=== PATIENT | male | born 1980 | race Caucasian/White ===

== ENCOUNTER 2021-01-10 18:21 | Observation (INO) | payer OTHER ==
[2021-01-10] MEDS ORDERED: ACETAMINOPHEN TAB 500 MG TAB PO STA (18:30)
[2021-01-10] MEDS: SODIUM CHLORIDE 0.9% 500 ML 500 ML IV SCH ×3 (18:56→21:44)
[2021-01-10] MEDS: SODIUM CHLORIDE 0.9% 1,000 ML IV SCH ×2 (18:56→23:37)
[2021-01-10 19:25] LABS: Potassium 3.7 mmol/L (3.5-5.1)
[2021-01-10 19:26] LABS: Calcium 9.2 mg/dL (8.4-10.2); Total Bilirubin 0.8 mg/dL (0.2-1.3); Total Protein 6.7 g/dL (6.3-8.2)
[2021-01-10 19:35] LABS: INR 1.1 (<1.2); Partial Thromboplastin Time 23.1 sec (22.0-30.0); Prothrombin Time 11.4 sec (9.0-12.0)
[2021-01-10 19:42] LABS: Basophils % (A) 1 %; Eosinophils % (A) 1 %; HCT 43.7 % (39.0-53.0); Lymphocytes # (A) 1.5 k/uL (1.0-4.8); Lymphocytes % (A) 27 %; MCHC 34.3 g/dL (31.0-37.0); MCV 90.6 fL (80.0-100.0); Mean Platelet Volume 7.9; Monocytes % (A) 18 %; Neutrophils # (A) 2.8 k/uL (1.3-7.7); Neutrophils % (A) 50 %; Platelet Count 300 k/uL (150-450); RBC 4.83 m/uL (4.30-5.90); RDW 12.6 % (11.5-15.5); WBC 5.6 k/uL (3.8-10.6)
--- NOTE | 2021-01-10 20:35 | CT ---
EXAMINATION TYPE: CT pelvis w con DATE OF EXAM: 01/10/2021 COMPARISON: None HISTORY: perirectal abscess CT DLP: 2956.8 mGycm Automated exposure control for dose reduction was used. CONTRAST: Performed with IV Contrast, patient injected with 100 mL of Isovue 300. Images obtained from the iliac crests to the floor the pelvis with IV contrast. There is no free fluid in the pelvis. Bladder distends smoothly. There is no sign of pelvic lymphaden opathy. Visualized bowel appears intact. There is no sign of free air. There is a 6 x 5 cm irregular fluid collection in the subcutaneous tissues on the right buttock adjac ent to the anus. The visualized rectosigmoid colon appears intact. The bony structures are intact. Sacrum and coccyx s egments have normal alignment. There is no perirectal edema. Hip joints are intact. IMPRESSION: Large subcutaneous fluid collection on the right side consistent with a perianal abscess.
--- NOTE | 2021-01-10 20:41 | ED ---
Skin/Abscess/FB HPI - General Chief complaint: Skin/Abscess/Foreign Body Stated complaint: Abscess Source: patient Mode of arrival: ambulatory Limitations: no limitations - History of Present Illness Initial comments: Enoch is a previously healthy 40-year-old male who presents to the emergency department stay via private vehicle for evaluation of an abscess on his buttocks. Patient reports that earlier this week he noticed pain and swelling in the area. He went to an urgent care earlier today and was told he had come to the emergency department for further evaluation. On diabetic. Patient has no history of abscess in this area. Patient has no known history of ulcerative colitis or Crohn's. Reports that his father was hospitalized with colitis but doesn't believe it was an inflammatory bowel disorder. - Related Data Home Medications Medication Instructions Recorded Confirmed amLODIPine BESYLATE/BENAZEPRIL 1 cap PO DAILY 01/10/21 01/10/21 [Lotrel 5-20 MG] Allergies Allergy/AdvReac Type Severity Reaction Status Date / Time No Known Allergies Allergy Verified 01/10/21 19:15 Review of Systems ROS Statement: Those systems with pertinent positive or pertinent negative responses have been documented in the HPI. ROS Other: All systems not noted in ROS Statement are negative. Past Medical History Past Medical History: Hypertension History of Any Multi-Drug Resistant Organisms: None Reported Past Surgical History: No Surgical Hx Reported Past Psychological History: No Psychological Hx Reported Smoking Status: Never smoker Past Alcohol Use History: Occasional Past Drug Use History: Marijuana General Exam - General Exam Comments Initial Comments: Physical Exam GENERAL: Patient is well-developed and well-nourished HENT: Normocephalic, Atraumatic EYES: PERRL, EOMI PULMONARY: Unlabored respirations No audible rales rhonchi or wheezing was noted. CARDIOVASCULAR: Tachycardic ABDOMEN: Soft and nontender with normal bowel sounds. SKIN: Erythema and edema of the right buttocks, swelling and pain prevent rectal exam : Swelling and pain prevent rectal exam NEUROLOGIC: Patient is alert and oriented x3. Moving all extremities spontaneously MUSCULOSKELETAL: Normal extremities with adequate strength and full range of motion. No lower extremity swelling or edema. No calf tenderness. PSYCHIATRIC: Normal psychiatric evaluation. Limitations: no limitations Course Vital Signs 01/10/21 01/10/21 18:21 20:00 Temperature 102.5 F H 100.8 F H Pulse Rate 126 H 78 Respiratory 18 18 Rate Blood Pressure 127/87 145/57 O2 Sat by Pulse 97 98 Oximetry Medical Decision Making - Medical Decision Making Patient was seen and evaluated Patient was febrile tachypneic and tachycardic Septic workup was initiated Physical exam consistent with cellulitis and likely abscess in the right buttock Computed tomography scan was obtained Labs were remarkably normal ED scan confirms a large 5 x 6 cm abscess Patient care was discussed with surgeon Dr. Rausch who accepts the admission Malina request the patient receive Zosyn, IV fluids, pain medication and antiemetics be made nothing by mouth at Plan was discussed with patient is in agreement to admission - Lab Data Result diagrams: 01/10/21 18:54 01/10/21 18:54 Lab Results 01/10/21 01/10/21 01/10/21 Range/Units 18:54 18:54 18:54 WBC 5.6 (3.8-10.6) k/uL RBC 4.83 (4.30-5.90) m/uL Hgb 15.0 (13.0-17.5) gm/dL Hct 43.7 (39.0-53.0) % MCV 90.6 (80.0-100.0) fL MCH 31.0 (25.0-35.0) pg MCHC 34.3 (31.0-37.0) g/dL RDW 12.6 (11.5-15.5) % Plt Count 300 (150-450) k/uL MPV 7.9 Neutrophils % 50 % Lymphocytes % 27 % Monocytes % 18 % Eosinophils % 1 % Basophils % 1 % Neutrophils # 2.8 (1.3-7.7) k/uL Lymphocytes # 1.5 (1.0-4.8) k/uL Monocytes # 1.0 (0-1.0) k/uL Eosinophils # 0.0 (0-0.7) k/uL Basophils # 0.0 (0-0.2) k/uL Manual Slide Review Performed PT 11.4 (9.0-12.0) sec INR 1.1 (<1.2) APTT 23.1 (22.0-30.0) sec Sodium 135 L (137-145) mmol/L Potassium 3.7 (3.5-5.1) mmol/L Chloride 101 (98-107) mmol/L Carbon Dioxide 21 L (22-30) mmol/L Anion Gap 13 mmol/L BUN 15 (9-20) mg/dL Creatinine 1.25 (0.66-1.25) mg/dL Est GFR (CKD-EPI)AfAm 82 (>60 ml/min/1.73 sqM) Est GFR (CKD-EPI)NonAf 71 (>60 ml/min/1.73 sqM) Glucose 140 H (74-99) mg/dL Plasma Lactic Acid Amanuel (0.7-2.0) mmol/L Calcium 9.2 (8.4-10.2) mg/dL Total Bilirubin 0.8 (0.2-1.3) mg/dL AST 24 (17-59) U/L ALT 24 (4-49) U/L Alkaline Phosphatase 69 (38-126) U/L Total Protein 6.7 (6.3-8.2) g/dL Albumin 4.0 (3.5-5.0) g/dL 01/10/21 Range/Units 18:54 WBC (3.8-10.6) k/uL RBC (4.30-5.90) m/uL Hgb (13.0-17.5) gm/dL Hct (39.0-53.0) % MCV (80.0-100.0) fL MCH (25.0-35.0) pg MCHC (31.0-37.0) g/dL RDW (11.5-15.5) % Plt Count (150-450) k/uL MPV Neutrophils % % Lymphocytes % % Monocytes % % Eosinophils % % Basophils % % Neutrophils # (1.3-7.7) k/uL Lymphocytes # (1.0-4.8) k/uL Monocytes # (0-1.0) k/uL Eosinophils # (0-0.7) k/uL Basophils # (0-0.2) k/uL Manual Slide Review PT (9.0-12.0) sec INR (<1.2) APTT (22.0-30.0) sec Sodium (137-145) mmol/L Potassium (3.5-5.1) mmol/L Chloride (98-107) mmol/L Carbon Dioxide (22-30) mmol/L Anion Gap mmol/L BUN (9-20) mg/dL Creatinine (0.66-1.25) mg/dL Est GFR (CKD-EPI)AfAm (>60 ml/min/1.73 sqM) Est GFR (CKD-EPI)NonAf (>60 ml/min/1.73 sqM) Glucose (74-99) mg/dL Plasma Lactic Acid Amanuel 1.3 (0.7-2.0) mmol/L Calcium (8.4-10.2) mg/dL Total Bilirubin (0.2-1.3) mg/dL AST (17-59) U/L ALT (4-49) U/L Alkaline Phosphatase (38-126) U/L Total Protein (6.3-8.2) g/dL Albumin (3.5-5.0) g/dL Disposition Clinical Impression: Perirectal abscess Disposition: ADMITTED IP TO THIS HOSP Condition: Stable Is patient prescribed a controlled substance at d/c from ED?: No Referrals: None,Stated [Primary Care Provider] - 1-2 days
[2021-01-10] MEDS ORDERED: ONDANSETRON 4 MG/2 ML VIAL IVP PRN (21:16)
[2021-01-10] MEDS ORDERED: MORPHINE SULFATE 4 MG/ML SYRINGE IV PRN (21:16)
[2021-01-10] MEDS ORDERED: NALOXONE 0.4 MG/ML 1 ML VIAL IV PRN (21:16)
[2021-01-10] MEDS ORDERED: IBUPROFEN 400 MG TAB PO PRN (21:16)
[2021-01-10 22:35] LABS: Appearance,Urine Clear (Clear); Bilirubin,Urine Negative (Negative); Blood,Urine Negative (Negative); Color,Urine Yellow; Glucose,Urine (UA) Negative (Negative); Ketones,Urine 1+ (Negative); Leukocyte Esterase,Urine Negative (Negative); Nitrite,Urine Negative (Negative); PH, Urine 5.5 (5.0-8.0); Protein,Urine Trace (Negative); Urobilinogen,Urine <2.0 mg/dL (<2.0)
[2021-01-10] MEDS: PIPERACILLIN-TAZOBACTAM 3.375 GM in SODIUM CHLORIDE 0.9% 100 ML IVPB SCH (23:36)
[2021-01-11] MEDS: ACETAMINOPHEN TAB 325 MG TAB PO PRN (02:16)
[2021-01-11] MEDS: PIPERACILLIN-TAZOBACTAM 3.375 GM in SODIUM CHLORIDE 0.9% 100 ML IVPB SCH ×3 (09:35→23:42)
[2021-01-11] MEDS: SODIUM CHLORIDE 0.9% 1,000 ML IV SCH ×3 (09:36→23:43)
[2021-01-11] MEDS ORDERED: HYDROmorphone 1 MG/ML 1 ML SYRINGE IVP PRN (13:08)
--- NOTE | 2021-01-11 14:42 | P.GSHP ---
History of Present Illness H&P Date: 01/11/21 Chief Complaint: Perirectal abscess This is a 40-year-old male who was admitted through the emergency room less than complaints of rectal pain. Patient has a right perirectal abscess. Past Medical History Past Medical History: Hypertension History of Any Multi-Drug Resistant Organisms: None Reported Past Surgical History: No Surgical Hx Reported Past Psychological History: No Psychological Hx Reported Smoking Status: Never smoker Past Alcohol Use History: Occasional Past Drug Use History: Marijuana Medications and Allergies Home Medications Medication Instructions Recorded Confirmed Type amLODIPine BESYLATE/BENAZEPRIL 1 cap PO DAILY 01/10/21 01/10/21 History [Lotrel 5-20 MG] Allergies Allergy/AdvReac Type Severity Reaction Status Date / Time No Known Allergies Allergy Verified 01/10/21 19:15 Surgical - Exam Vital Signs Temp Pulse Resp BP Pulse Ox 102.5 F H 126 H 18 127/87 97 01/10/21 18:21 01/10/21 18:21 01/10/21 18:21 01/10/21 18:21 01/10/21 18:21 - General well developed, well nourished, no distress - Eyes PERRL - ENT normal pinna - Neck no masses - Respiratory normal expansion - Cardiovascular Rhythm: regular - Abdomen Abdomen: soft, non tender - Rectum Right perirectal induration Results - Labs 01/10/21 18:54 01/10/21 18:54 Abnormal Lab Results - Last 24 Hours (Table) 01/10/21 01/10/21 Range/Units 18:30 18:54 Sodium 135 L (137-145) mmol/L Carbon Dioxide 21 L (22-30) mmol/L Glucose 140 H (74-99) mg/dL Ur Specific [place] 1.050 H (1.001-1.035) Urine Protein Trace H (Negative) Urine Ketones 1+ H (Negative) Diabetes panel 01/10/21 Range/Units 18:54 Sodium 135 L (137-145) mmol/L Potassium 3.7 (3.5-5.1) mmol/L Chloride 101 (98-107) mmol/L Carbon Dioxide 21 L (22-30) mmol/L BUN 15 (9-20) mg/dL Creatinine 1.25 (0.66-1.25) mg/dL Glucose 140 H (74-99) mg/dL Calcium 9.2 (8.4-10.2) mg/dL AST 24 (17-59) U/L ALT 24 (4-49) U/L Alkaline Phosphatase 69 (38-126) U/L Total Protein 6.7 (6.3-8.2) g/dL Albumin 4.0 (3.5-5.0) g/dL Calcium panel 01/10/21 Range/Units 18:54 Calcium 9.2 (8.4-10.2) mg/dL Albumin 4.0 (3.5-5.0) g/dL Pituitary panel 01/10/21 Range/Units 18:54 Sodium 135 L (137-145) mmol/L Potassium 3.7 (3.5-5.1) mmol/L Chloride 101 (98-107) mmol/L Carbon Dioxide 21 L (22-30) mmol/L BUN 15 (9-20) mg/dL Creatinine 1.25 (0.66-1.25) mg/dL Glucose 140 H (74-99) mg/dL Calcium 9.2 (8.4-10.2) mg/dL Adrenal panel 01/10/21 Range/Units 18:54 Sodium 135 L (137-145) mmol/L Potassium 3.7 (3.5-5.1) mmol/L Chloride 101 (98-107) mmol/L Carbon Dioxide 21 L (22-30) mmol/L BUN 15 (9-20) mg/dL Creatinine 1.25 (0.66-1.25) mg/dL Glucose 140 H (74-99) mg/dL Calcium 9.2 (8.4-10.2) mg/dL Total Bilirubin 0.8 (0.2-1.3) mg/dL AST 24 (17-59) U/L ALT 24 (4-49) U/L Alkaline Phosphatase 69 (38-126) U/L Total Protein 6.7 (6.3-8.2) g/dL Albumin 4.0 (3.5-5.0) g/dL Assessment and Plan Assessment: Biopsies. Patient will undergo incision and drainage.
--- NOTE | 2021-01-11 14:48 | P.OP ---
Date of Procedure: 01/11/21 Preoperative Diagnosis: Right perirectal abscess Postoperative Diagnosis: Right perirectal abscess Procedure(s) Performed: Incision and drainage of perirectal abscess Anesthesia: MAC Surgeon: Blair Giles Estimated Blood Loss (ml): 10 Pathology: other (Wound culture) Condition: stable Disposition: PACU Description of Procedure: Patient's placed on on his bed in the supine position. His anus was prepped and draped usual fashion. In the right perirectal area there was area of induration. This area is anesthetized 1% local Xylocaine. Using 11 blade the area was incised and a purely cavity was entered. This was cultured. The abscess cavity is packed with gauze. Patient tolerated the procedure well.
[2021-01-11] MEDS ORDERED: traMADol 50 MG TAB PO PRN (17:07)
--- NOTE | 2021-01-11 17:10 | P.CONS ---
History of Present Illness - Reason for Consult Antibiotic management, hypertension - History of Present Illness 40-year-old male came in with pain in the perirectal area with fevers which started yesterday pain started last Saturday. Patient is found to have perirectal abscess patient underwent incision and drainage bedside patient was started on Zosyn. Patient does have history of hypertension. Patient pain is well controlled at this time. Review of Systems REVIEW OF SYSTEMS: CONSTITUTIONAL: No fever, no malaise, no fatigue. HEENT: No recent visual problems or hearing problems. Denied any sore throat. CARDIOVASCULAR: No chest pain, orthopnea, PND, no palpitations, no syncope. PULMONARY: No shortness of breath, no cough, no hemoptysis. GASTROINTESTINAL: No diarrhea, no nausea, no vomiting, no abdominal pain. NEUROLOGICAL: No headaches, no weakness, no numbness. HEMATOLOGICAL: Denies any bleeding or petechiae. GENITOURINARY: As mentioned in the interval history MUSCULOSKELETAL/RHEUMATOLOGICAL: Denies any joint pain, swelling, or any muscle pain. ENDOCRINE: Denies any polyuria or polydipsia. The rest of the 14-point review of systems is negative. Past Medical History Past Medical History: Hypertension History of Any Multi-Drug Resistant Organisms: None Reported Past Surgical History: No Surgical Hx Reported Past Psychological History: No Psychological Hx Reported Smoking Status: Never smoker Past Alcohol Use History: Occasional Past Drug Use History: Marijuana Medications and Allergies Home Medications Medication Instructions Recorded Confirmed Type amLODIPine BESYLATE/BENAZEPRIL 1 cap PO DAILY 01/10/21 01/10/21 History [Lotrel 5-20 MG] Allergies Allergy/AdvReac Type Severity Reaction Status Date / Time No Known Allergies Allergy Verified 01/10/21 19:15 Physical Exam Vitals: Vital Signs Temp Pulse Pulse Resp BP BP Pulse Ox 01/11/21 15:34 99.1 F 86 13 129/83 96 01/11/21 08:19 99.2 F 91 14 145/84 97 01/11/21 01:19 99.9 F H 93 15 110/65 98 01/10/21 22:06 99.2 F 89 15 120/79 96 01/10/21 21:49 99.2 F 18 01/10/21 20:00 100.8 F H 78 18 145/57 98 01/10/21 18:21 102.5 F H 126 H 18 127/87 97 Intake and Output 01/11/21 01/11/21 01/11/21 06:59 14:59 22:59 Intake Total 1230 Balance 1230 Intake: Intake, IV Titration 1230 Amount Piperacillin-Tazobactam 3 100 .375 gm In Sodium Chloride 0.9% 100 ml @ 25 mls/hr IVPB Q8HR [facility] Rx# :[id number] Sodium Chloride 0.9% 1, 1130 000 ml @ 130 mls/hr IV . Q7H42M [facility] Rx#:[id number] Other: Voiding Method Toilet PHYSICAL EXAMINATION: GENERAL: The patient is alert and oriented x3, not in any acute distress. Obese HEENT: Pupils are round and equally reacting to light. EOMI. No scleral icterus. No conjunctival pallor. Normocephalic, atraumatic. No pharyngeal erythema. No thyromegaly. CARDIOVASCULAR: S1 and S2 present. No murmurs, rubs, or gallops. PULMONARY: Chest is clear to auscultation, no wheezing or crackles. ABDOMEN: Soft, nontender, nondistended, normoactive bowel sounds. No palpable organomegaly. Perirectal area is post surgically packed and I didn't examine that area MUSCULOSKELETAL: No joint swelling or deformity. EXTREMITIES: No cyanosis, clubbing, or pedal edema. NEUROLOGICAL: Gross neurological examination did not reveal any focal deficits. SKIN: No rashes. Results CBC & Chem 7: 01/10/21 18:54 01/10/21 18:54 Labs: Abnormal Lab Results - Last 24 Hours (Table) 01/10/21 01/10/21 Range/Units 18:30 18:54 Sodium 135 L (137-145) mmol/L Carbon Dioxide 21 L (22-30) mmol/L Glucose 140 H (74-99) mg/dL Ur Specific [place] 1.050 H (1.001-1.035) Urine Protein Trace H (Negative) Urine Ketones 1+ H (Negative) Assessment and Plan Plan: -perirectal abscess : status post incision and drainage, patient is on Zosyn which is appropriate will await for cultures. -Hypertension because of acute renal failure with elevated creatinine of 1.24 I'll hold off on AKI inhibitor patient will be continued on Norvasc. -Mild acute renal failure prerenal azotemia secondary to possible sepsis. Motor will discuss reviewed and patient was started on tramadol and continue with the morphine for pain -sepsis secondary to assessment 1 -I'll hypovolemic hyponatremia -DVT prophylaxis with Lovenox
[2021-01-12] MEDS: ACETAMINOPHEN TAB 325 MG TAB PO PRN (00:55)
[2021-01-12 03:13] VITALS: RESP 14
[2021-01-12] MEDS: PIPERACILLIN-TAZOBACTAM 3.375 GM in SODIUM CHLORIDE 0.9% 100 ML IVPB SCH (08:52)
[2021-01-12] MEDS: SODIUM CHLORIDE 0.9% 1,000 ML IV SCH (08:52)
[2021-01-12] MEDS ORDERED: ENOXAPARIN 40 MG/0.4 ML SYRINGE SQ SCH (09:00)
[2021-01-12] MEDS ORDERED: amLODIPine 5 MG TAB PO SCH (09:00)
--- NOTE | 2021-01-12 12:54 | P.DS ---
Providers Date of admission: 01/10/21 21:17 Expected date of discharge: 01/12/21 Attending physician: Blair Giles Consults: 01/11/21 14:06 Consult Physician Routine Consulting Provider: Tonia Castillo Consult Reason/Comments: Medical Management Do you want consulting provider notified?: Yes Primary care physician: Stated None Hospital Course: This is a 40-year-old male who was noted to the hospital with perirectal abscess. Patient went incision drainage. Please see hospital chart for details Procedures: Incision and drainage of perirectal abscess Patient Condition at Discharge: Good Plan - Discharge Summary Discharge Rx Participant: Yes New Discharge Prescriptions: New Docusate [Colace] 100 mg PO BID #20 capsule oxyCODONE HCL [OxyIR] 5 mg PO Q6H PRN 3 Days #10 tab PRN Reason: Pain Levofloxacin [Levaquin] 500 mg PO DAILY 1 Days #7 tab Ibuprofen [Motrin] 600 mg PO Q6HR PRN #40 tab PRN Reason: Pain Acetaminophen Tab [Tylenol] 650 mg PO Q6H #30 tab No Action amLODIPine BESYLATE/BENAZEPRIL [Lotrel 5-20 MG] 1 cap PO DAILY Discharge Medication List amLODIPine BESYLATE/BENAZEPRIL [Lotrel 5-20 MG] 1 cap PO DAILY 01/10/21 [History] Acetaminophen Tab [Tylenol] 650 mg PO Q6H #30 tab 01/12/21 [Rx] Docusate [Colace] 100 mg PO BID #20 capsule 01/12/21 [Rx] Ibuprofen [Motrin] 600 mg PO Q6HR PRN #40 tab 01/12/21 [Rx] Levofloxacin [Levaquin] 500 mg PO DAILY 1 Days #7 tab 01/12/21 [Rx] oxyCODONE HCL [OxyIR] 5 mg PO Q6H PRN 3 Days #10 tab 01/12/21 [Rx] Follow up Appointment(s)/Referral(s): None,Stated [Primary Care Provider] - 1-2 days
--- NOTE | 2021-01-12 13:38 | P.PN ---
Subjective 40-year-old male came in with pain in the perirectal area with fevers which started yesterday pain started last Saturday. Patient is found to have perirectal abscess patient underwent incision and drainage bedside patient was started on Zosyn. Patient does have history of hypertension. Patient pain is well controlled at this time. 01/12/2021 Patient is clinically doing well is being discharged patient will be switched to Augmentin. I'll send the prescription. I'll follow-up on the cultures patient wound cultures are showing gram-negative bacilli. Constitutional: Denied any fatigue denied any fever. Cardio vascular: denied any chest pain, palpitations Gastrointestinal denied any nausea vomiting Pulmonary: Denied any shortness of breath cough Neurologic denied any new focal deficits All inpatient medications were reviewed and appropriate changes in these medications as dictated in the interval history and assessment and plan. Objective - Vital Signs Vital signs: Vital Signs Temp 98.8 F 01/12/21 07:59 Pulse 94 01/12/21 07:59 Resp 14 01/12/21 07:59 BP 148/92 01/12/21 07:59 Pulse Ox 97 01/12/21 07:59 Intake & Output 01/11/21 01/12/21 01/12/21 18:59 06:59 18:59 Output Total 2 Balance -2 Output: Urine 2 Stool 0 Other: Voiding Method Toilet Toilet Toilet # Voids 2 - Exam Assessment and Plan Plan: -perirectal abscess : status post incision and drainage, patient is on Zosyn which is appropriate will await for cultures. -Hypertension because of acute renal failure with elevated creatinine of 1.24 I'll hold off on AKI inhibitor patient will be continued on Norvasc. -Mild acute renal failure prerenal azotemia secondary to possible sepsis. Motor will discuss reviewed and patient was started on tramadol and continue with the morphine for pain -sepsis secondary to assessment 1 -I'll hypovolemic hyponatremia -DVT prophylaxis with Lovenox - Labs CBC & Chem 7: 01/10/21 18:54 01/10/21 18:54 Labs: Microbiology - Last 24 Hours (Table) 01/11/21 14:13 Gram Stain - Preliminary Buttock Wound Culture - Preliminary Gram Neg Bacilli 01/10/21 19:25 Blood Culture - Preliminary Blood No Growth after 24 hours 01/10/21 18:54 Blood Culture - Preliminary Blood No Growth after 24 hours 01/11/21 14:13 Anaerobic Culture - Preliminary Buttock Assessment and Plan Plan: -perirectal abscess : status post incision and drainage, patient was on Zosyn and the will be switched to Augmentin upon discharge. -Hypertension because of acute renal failure with elevated creatinine of 1.24 . Patient received IV fluids did -Mild acute renal failure prerenal azotemia secondary to possible sepsis. Patient received IV fluids and was anticipating his kidney function to improve. -sepsis secondary to assessment 1 -I'll hypovolemic hyponatremia received IV fluids Patient is being discharged today
[2021-01-12 14:35] VITALS: BP 152/93; PULSE 90; TEMP 99.2
== END 2021-01-12 14:42 ==
LOC: EC 18:21 → 4SSUR 21:17
PROVIDERS: ADMIT Surgery; ATTEND Surgery
DX: K61.1 Rectal abscess (principal); B96.89 Other specified bacterial agents as the cause of diseases classified elsewhere; N17.9 Acute kidney failure, unspecified; E87.1 Hypo-osmolality and hyponatremia; I10 Essential (primary) hypertension; R00.0 Tachycardia, unspecified; R06.82 Tachypnea, not elsewhere classified; Z20.822 Contact with and (suspected) exposure to COVID-19; Z79.899 Other long term (current) drug therapy
CPT/HCPCS: 46050; 96361; 96366; 96365; 99285; 36415; 93005; 80053; 83605; 85025; 85610; 85730; 81003; 87040; 87070; 87205; 87075; 87077; 87186; 87635; 72193; G0378 ×3; J2543 ×3; J1650; J1170; Q9967